=== PATIENT | female | born 1940 | race Caucasian/White ===

== ENCOUNTER 2017-09-19 20:29 | Inpatient (IN) ==
[2017-09-19] MEDS ORDERED: SODIUM CHLORIDE 0.9% 1,000 ML IV STA (21:32)
[2017-09-19] MEDS ORDERED: MORPHINE 2 MG/1 ML SYRINGE IV STA (21:32)
[2017-09-19] MEDS ORDERED: ONDANSETRON 4 MG/2 ML VIAL IV STA ×2 (21:32→22:28)
[2017-09-19] MEDS ORDERED: ONDANSETRON 4 MG/2 ML VIAL ONE ×2 (21:36→22:49)
[2017-09-19] MEDS ORDERED: MORPHINE 2 MG/1 ML SYRINGE ONE (21:36)
[2017-09-19] MEDS ORDERED: HYDROmorphone 2 MG/1 ML VIAL IV STA (22:28)
[2017-09-19] MEDS ORDERED: HYDROmorphone 2 MG/1 ML VIAL ONE (22:50)
[2017-09-19 22:55] LABS: Basophils % 0.2 % (0.0-0.8); Eosinophils % 0.2 % (0.00-10.9); Hematocrit 39.5 VOL% (35.7-47.0); Immature Granulocytes % 0.3 %; Immature Granulocytes Absolute 0.02 #; Lymphocytes % 17.7 % (21.3-54.2); Mean Corpuscular HGB Conc 32.9 GM/DL (32-36); Mean Corpuscular Hemoglobin 29 PG (27-34); Mean Corpuscular Volume 89.2 FL (87-102); Mean Platelet Volume 11.1 FL (9.6-12.0); Monocytes # 0.6 10*3/uL (0.11-0.8); Monocytes % 9.5 % (1.7-12.7); Neutrophils # 4.2 10*3/uL (1.4-7.4); Neutrophils % 72.1 % (38.7-73.9); Platelet Count 141 T/CUMM (130-400); Red Blood Count 4.43 MC/CUMM (3.8-5.5); Red Cell Distribution Width 12.1 % (9.3-17.3); White Blood Count 5.8 T/CUMM (4-12)
[2017-09-19] MEDS ORDERED: hydrALAZINE 20 MG/1 ML VIAL IV PRN (23:27)
[2017-09-19] MEDS ORDERED: HYDROmorphone 2 MG/1 ML VIAL IV PRN (23:28)
[2017-09-19 23:30] LABS: Lactic Acid 1.2 MMOL/L (0.4-2.0)
[2017-09-19 23:33] LABS: Alanine Aminotransferase 19 U/L (13-56); Albumin 3.8 G/DL (3.4-5.0); Alkaline Phosphatase 106 U/L (45-117); Aspartate Amino Transferase 21 U/L (0-37); Blood Urea Nitrogen 12 MG/DL (7-18); Calcium 8.7 MG/DL (8.5-10.1); Glucose 126 MG/DL (74-106); Osmolality,Calculated 284.1 MOS/KG (273-304); Potassium 3.7 MMOL/L (3.5-5.1); Sodium 142 MMOL/L (136-145); Total Protein 6.3 G/DL (6.4-8.3); Troponin I Only < 0.015 NG/ML (0.00-0.045)
[2017-09-20] MEDS ORDERED: LABETALOL 20 MG/4 ML SYRINGE IV PRN (00:20)
[2017-09-20] MEDS ORDERED: DEXTROSE 50% 25 GM/50 ML VIAL IV PRN (00:26)
[2017-09-20] MEDS ORDERED: GLUCAGON 1 MG VIAL IM PRN (00:26)
[2017-09-20] MEDS: ONDANSETRON 4 MG/2 ML VIAL IV PRN ×4 (02:10→21:29)
[2017-09-20] MEDS: SODIUM CHLORIDE 0.9% 1,000 ML IV SCH ×2 (02:18→23:26)
[2017-09-20] MEDS: HYDROmorphone 2 MG/1 ML VIAL IV PRN ×3 (02:45→21:30)
[2017-09-20] MEDS: metroNIDAZOLE INJ 500 MG in PREMIX 1 EACH IV SCH ×3 (04:50→21:29)
[2017-09-20] MEDS: CIPROFLOXACIN INJ 400 MG in PREMIX 1 EACH IV SCH ×2 (05:52→17:05)
[2017-09-20] MEDS: INSULIN REGULAR 100 UNIT/ML SUBCUT SCH ×3 (06:08→18:37)
[2017-09-20 06:16] LABS: Basophils % 0.1 % (0.0-0.8); Eosinophils % 0.1 % (0.00-10.9); Hematocrit 39.1 VOL% (35.7-47.0); Hemoglobin 13.6 GM/DL (12.0-16.0); Immature Granulocytes % 0.3 %; Immature Granulocytes Absolute 0.02 #; Lymphocytes % 14.4 % (21.3-54.2); Mean Corpuscular HGB Conc 34.8 GM/DL (32-36); Mean Corpuscular Hemoglobin 31 PG (27-34); Mean Corpuscular Volume 88.7 FL (87-102); Mean Platelet Volume 11.3 FL (9.6-12.0); Monocytes # 0.6 10*3/uL (0.11-0.8); Monocytes % 8.8 % (1.7-12.7); Neutrophils # 5.1 10*3/uL (1.4-7.4); Neutrophils % 76.3 % (38.7-73.9); Platelet Count 171 T/CUMM (130-400); Red Blood Count 4.41 MC/CUMM (3.8-5.5); Red Cell Distribution Width 12.2 % (9.3-17.3); White Blood Count 6.7 T/CUMM (4-12)
[2017-09-20] MEDS: KETOROLAC 15 MG/1 ML VIAL IV PRN (06:24)
[2017-09-20 06:57] LABS: Calcium 8.8 MG/DL (8.5-10.1); Magnesium 2.8 MG/DL (1.8-2.4); Potassium 3.9 MMOL/L (3.5-5.1); Thyroid Stimulating Hormone 3.41 uIU/ml (0.358-3.74)
[2017-09-20 07:21] LABS: Apearance,Urine CLEAR (Clear); Bilirubin,Urine Negative (Negative); Blood, Urine Moderate mg/dL (Negative); Glucose,Urine (UA) 50 mg/dL (Negative); Ketones,Urine 20 mg/dL (Negative); Mucus,Urine Occasional /LPF (Occasional); Nitrite,Urine Negative (Negative); Protein,Urine 100 MG/DL; RBC,Urine 14 /HPF (0-4); Squamous Epithelial Cell,Urine Occasional /HPF (0-10); Urine Color Yellow (Yellow); Urine Urobilinogen < 2.0 EU/DL (0.2-1.0); WBC,Urine 1 /HPF (0-6)
[2017-09-20] MEDS: PANTOPRAZOLE 40 MG VIAL IV SCH (08:22)
[2017-09-20] MEDS ORDERED: BISACODYL 10 MG SUPP RECTAL ONE (11:00)
[2017-09-21] MEDS: INSULIN REGULAR 100 UNIT/ML SUBCUT SCH ×4 (00:52→17:00)
[2017-09-21] MEDS: metroNIDAZOLE INJ 500 MG in PREMIX 1 EACH IV SCH ×3 (04:40→20:24)
[2017-09-21 05:19] LABS: Basophils % 0.4 % (0.0-0.8); Eosinophils # 0.1 10*3/uL (0.0-0.87); Eosinophils % 1.3 % (0.00-10.9); Hematocrit 34.7 VOL% (35.7-47.0); Hemoglobin 11.4 GM/DL (12.0-16.0); Immature Granulocytes % 0.4 %; Immature Granulocytes Absolute 0.02 #; Lymphocytes % 22.7 % (21.3-54.2); Mean Corpuscular HGB Conc 32.9 GM/DL (32-36); Mean Corpuscular Hemoglobin 29 PG (27-34); Mean Corpuscular Volume 88.7 FL (87-102); Monocytes # 0.4 10*3/uL (0.11-0.8); Monocytes % 9.6 % (1.7-12.7); Neutrophils % 65.6 % (38.7-73.9); Platelet Count 124 T/CUMM (130-400); Red Blood Count 3.91 MC/CUMM (3.8-5.5); Red Cell Distribution Width 12.2 % (9.3-17.3); White Blood Count 4.6 T/CUMM (4-12)
[2017-09-21 05:45] LABS: Calcium 8.4 MG/DL (8.5-10.1); Magnesium 2.4 MG/DL (1.8-2.4); Osmolality,Calculated 286.8 MOS/KG (273-304); Potassium 3.9 MMOL/L (3.5-5.1)
[2017-09-21] MEDS: CIPROFLOXACIN INJ 400 MG in PREMIX 1 EACH IV SCH ×2 (05:45→17:07)
[2017-09-21 05:52] LABS: Albumin 3.1 G/DL (3.4-5.0); Bilirubin,Total 1.1 MG/DL (0.2-1.0); Calcium 8.5 MG/DL (8.5-10.1); Potassium 3.9 MMOL/L (3.5-5.1); Total Protein 5.2 G/DL (6.4-8.3)
[2017-09-21] MEDS: SODIUM CHLORIDE 0.9% 1,000 ML IV SCH (08:25)
[2017-09-21] MEDS: PANTOPRAZOLE 40 MG VIAL IV SCH (08:26)
[2017-09-21] MEDS: ASPIRIN CHEW 81 MG TABLET PO SCH (08:26)
[2017-09-21] MEDS: KETOROLAC 15 MG/1 ML VIAL IV PRN ×2 (09:29→20:23)
[2017-09-21] MEDS: DEXTROSE 5% NACL 0.45% 1,000 ML IV SCH (13:00)
[2017-09-21] MEDS: HYDROmorphone 2 MG/1 ML VIAL IV PRN (13:07)
[2017-09-21] MEDS: ONDANSETRON 4 MG/2 ML VIAL IV PRN (20:26)
[2017-09-22] MEDS: INSULIN REGULAR 100 UNIT/ML SUBCUT SCH ×4 (01:13→18:44)
[2017-09-22] MEDS: DEXTROSE 5% NACL 0.45% 1,000 ML IV SCH ×2 (01:17→22:27)
[2017-09-22] MEDS: ONDANSETRON 4 MG/2 ML VIAL IV PRN ×2 (01:31→21:42)
[2017-09-22] MEDS: KETOROLAC 15 MG/1 ML VIAL IV PRN ×2 (02:34→21:47)
[2017-09-22] MEDS: CIPROFLOXACIN INJ 400 MG in PREMIX 1 EACH IV SCH ×2 (05:50→18:44)
[2017-09-22 06:14] LABS: Basophils % 0.3 % (0.0-0.8); Eosinophils # 0.1 10*3/uL (0.0-0.87); Hematocrit 31.6 VOL% (35.7-47.0); Hemoglobin 10.8 GM/DL (12.0-16.0); Immature Granulocytes % 0.3 %; Immature Granulocytes Absolute 0.01 #; Lymphocytes # 0.8 10*3/uL (1.4-4.0); Lymphocytes % 26.8 % (21.3-54.2); Mean Corpuscular HGB Conc 34.2 GM/DL (32-36); Mean Corpuscular Hemoglobin 30 PG (27-34); Mean Corpuscular Volume 86.3 FL (87-102); Mean Platelet Volume 10.8 FL (9.6-12.0); Monocytes # 0.4 10*3/uL (0.11-0.8); Monocytes % 12.8 % (1.7-12.7); Neutrophils # 1.7 10*3/uL (1.4-7.4); Neutrophils % 56.8 % (38.7-73.9); Platelet Count 123 T/CUMM (130-400); Red Blood Count 3.66 MC/CUMM (3.8-5.5); Red Cell Distribution Width 11.9 % (9.3-17.3)
[2017-09-22 06:41] LABS: Calcium 8.3 MG/DL (8.5-10.1); Magnesium 2.3 MG/DL (1.8-2.4); Potassium 3.5 MMOL/L (3.5-5.1)
[2017-09-22] MEDS: ASPIRIN CHEW 81 MG TABLET PO SCH (08:20)
[2017-09-22] MEDS: metroNIDAZOLE INJ 500 MG in PREMIX 1 EACH IV SCH ×3 (08:20→23:44)
[2017-09-22] MEDS: PANTOPRAZOLE 40 MG VIAL IV SCH (08:21)
[2017-09-22] MEDS ORDERED: MORPHINE 2 MG/1 ML SYRINGE IV PRN (12:45)
[2017-09-23] MEDS: INSULIN REGULAR 100 UNIT/ML SUBCUT SCH ×4 (01:40→18:07)
[2017-09-23] MEDS: DEXTROSE 5% NACL 0.45% 1,000 ML IV SCH ×2 (04:04→10:34)
[2017-09-23 06:20] LABS: Basophils % 0.3 % (0.0-0.8); Eosinophils # 0.1 10*3/uL (0.0-0.87); Eosinophils % 3.1 % (0.00-10.9); Hematocrit 32.2 VOL% (35.7-47.0); Immature Granulocytes % 0.3 %; Immature Granulocytes Absolute 0.01 #; Mean Corpuscular HGB Conc 34.2 GM/DL (32-36); Mean Corpuscular Hemoglobin 30 PG (27-34); Mean Corpuscular Volume 86.3 FL (87-102); Mean Platelet Volume 10.8 FL (9.6-12.0); Monocytes # 0.5 10*3/uL (0.11-0.8); Monocytes % 14.1 % (1.7-12.7); Neutrophils % 55.2 % (38.7-73.9); Platelet Count 142 T/CUMM (130-400); Red Blood Count 3.73 MC/CUMM (3.8-5.5); Red Cell Distribution Width 11.9 % (9.3-17.3); White Blood Count 3.6 T/CUMM (4-12)
[2017-09-23] MEDS: CIPROFLOXACIN INJ 400 MG in PREMIX 1 EACH IV SCH ×2 (06:33→18:13)
[2017-09-23 06:54] LABS: Calcium 8.3 MG/DL (8.5-10.1); Magnesium 2.2 MG/DL (1.8-2.4); Osmolality,Calculated 285.8 MOS/KG (273-304)
[2017-09-23] MEDS: metroNIDAZOLE INJ 500 MG in PREMIX 1 EACH IV SCH ×2 (10:36→16:56)
[2017-09-23] MEDS: CARVEDILOL 12.5 MG TABLET PO SCH ×2 (10:40→21:42)
[2017-09-23] MEDS: ASPIRIN EC 81 MG TABLET PO SCH (10:40)
[2017-09-23] MEDS: ISOSORBIDE MONONITRATE 60 MG TABLET PO SCH (10:40)
[2017-09-23] MEDS: CLOPIDOGREL 75 MG TABLET PO SCH (10:40)
[2017-09-23] MEDS: PANTOPRAZOLE 40 MG VIAL IV SCH (10:41)
[2017-09-23] MEDS: fentaNYL 50 MCG/HR PATCH TRANSDERM SCH (10:41)
[2017-09-23] MEDS: MORPHINE 2 MG/1 ML SYRINGE IV SCH ×2 (14:36→21:41)
[2017-09-24] MEDS: INSULIN REGULAR 100 UNIT/ML SUBCUT SCH ×4 (00:15→17:22)
[2017-09-24] MEDS: metroNIDAZOLE INJ 500 MG in PREMIX 1 EACH IV SCH ×4 (00:15→19:57)
[2017-09-24 06:07] LABS: Basophils % 0.3 % (0.0-0.8); Eosinophils # 0.2 10*3/uL (0.0-0.87); Eosinophils % 4.9 % (0.00-10.9); Hematocrit 30.1 VOL% (35.7-47.0); Hemoglobin 10.3 GM/DL (12.0-16.0); Lymphocytes # 1.3 10*3/uL (1.4-4.0); Lymphocytes % 35.8 % (21.3-54.2); Mean Corpuscular HGB Conc 34.2 GM/DL (32-36); Mean Corpuscular Hemoglobin 30 PG (27-34); Mean Platelet Volume 10.7 FL (9.6-12.0); Monocytes # 0.5 10*3/uL (0.11-0.8); Monocytes % 15.2 % (1.7-12.7); Neutrophils # 1.5 10*3/uL (1.4-7.4); Neutrophils % 43.8 % (38.7-73.9); Platelet Count 132 T/CUMM (130-400); Red Blood Count 3.46 MC/CUMM (3.8-5.5); Red Cell Distribution Width 12.2 % (9.3-17.3); White Blood Count 3.5 T/CUMM (4-12)
[2017-09-24] MEDS: CIPROFLOXACIN INJ 400 MG in PREMIX 1 EACH IV SCH ×3 (06:42→23:04)
[2017-09-24] MEDS: MORPHINE 2 MG/1 ML SYRINGE IV SCH (06:43)
[2017-09-24 06:56] LABS: Calcium 8.1 MG/DL (8.5-10.1); Magnesium 2.2 MG/DL (1.8-2.4); Osmolality,Calculated 284.8 MOS/KG (273-304); Potassium 3.1 MMOL/L (3.5-5.1)
[2017-09-24] MEDS ORDERED: CIPROFLOXACIN 250 MG TABLET PO SCH (09:00)
[2017-09-24] MEDS: ISOSORBIDE MONONITRATE 60 MG TABLET PO SCH (10:18)
[2017-09-24] MEDS: ASPIRIN EC 81 MG TABLET PO SCH (10:19)
[2017-09-24] MEDS: CLOPIDOGREL 75 MG TABLET PO SCH (10:19)
[2017-09-24] MEDS: CARVEDILOL 12.5 MG TABLET PO SCH ×2 (10:19→20:52)
[2017-09-24] MEDS: PANTOPRAZOLE 40 MG TABLET PO SCH (13:11)
[2017-09-24] MEDS: POTASSIUM CHLORIDE 20 MEQ TABLET PO SCH ×4 (13:11→20:53)
[2017-09-24] MEDS ORDERED: metroNIDAZOLE 250 MG TABLET PO SCH (14:00)
[2017-09-25] MEDS: INSULIN REGULAR 100 UNIT/ML SUBCUT SCH ×4 (01:06→17:31)
[2017-09-25] MEDS: metroNIDAZOLE INJ 500 MG in PREMIX 1 EACH IV SCH ×3 (02:57→22:27)
[2017-09-25] MEDS: ONDANSETRON 4 MG/2 ML VIAL IV PRN (06:11)
[2017-09-25 06:16] LABS: Basophils % 0.5 % (0.0-0.8); Eosinophils # 0.2 10*3/uL (0.0-0.87); Eosinophils % 6.1 % (0.00-10.9); Hematocrit 36.3 VOL% (35.7-47.0); Hemoglobin 12.1 GM/DL (12.0-16.0); Immature Granulocytes % 0.3 %; Immature Granulocytes Absolute 0.01 #; Lymphocytes # 1.5 10*3/uL (1.4-4.0); Lymphocytes % 39.3 % (21.3-54.2); Mean Corpuscular HGB Conc 33.3 GM/DL (32-36); Mean Corpuscular Hemoglobin 29 PG (27-34); Mean Corpuscular Volume 88.1 FL (87-102); Mean Platelet Volume 10.7 FL (9.6-12.0); Monocytes # 0.5 10*3/uL (0.11-0.8); Neutrophils # 1.5 10*3/uL (1.4-7.4); Neutrophils % 39.8 % (38.7-73.9); Platelet Count 191 T/CUMM (130-400); Red Blood Count 4.12 MC/CUMM (3.8-5.5); Red Cell Distribution Width 12.4 % (9.3-17.3); White Blood Count 3.8 T/CUMM (4-12)
[2017-09-25 06:31] LABS: Calcium 8.9 MG/DL (8.5-10.1); Magnesium 2.2 MG/DL (1.8-2.4); Osmolality,Calculated 281.1 MOS/KG (273-304); Potassium 4.5 MMOL/L (3.5-5.1)
[2017-09-25] MEDS: ISOSORBIDE MONONITRATE 60 MG TABLET PO SCH (09:00)
[2017-09-25] MEDS: PANTOPRAZOLE 40 MG TABLET PO SCH (09:00)
[2017-09-25] MEDS: CARVEDILOL 12.5 MG TABLET PO SCH ×2 (09:00→20:24)
[2017-09-25] MEDS: CLOPIDOGREL 75 MG TABLET PO SCH (09:00)
[2017-09-25] MEDS: ASPIRIN EC 81 MG TABLET PO SCH (09:01)
[2017-09-25] MEDS ORDERED: DEXT 5% NACL 0.45% KCL 20 MEQ 20 MEQ/1,000 ML BAG IV SCH (09:30)
[2017-09-25] MEDS: CIPROFLOXACIN INJ 400 MG in PREMIX 1 EACH IV SCH ×2 (12:25→23:32)
[2017-09-26] MEDS: INSULIN REGULAR 100 UNIT/ML SUBCUT SCH ×5 (00:09→23:38)
[2017-09-26] MEDS: ONDANSETRON 4 MG/2 ML VIAL IV PRN ×2 (04:52→20:35)
[2017-09-26] MEDS: metroNIDAZOLE INJ 500 MG in PREMIX 1 EACH IV SCH (06:17)
[2017-09-26 06:58] LABS: Basophils % 0.3 % (0.0-0.8); Eosinophils # 0.1 10*3/uL (0.0-0.87); Eosinophils % 3.9 % (0.00-10.9); Hematocrit 34.6 VOL% (35.7-47.0); Hemoglobin 11.3 GM/DL (12.0-16.0); Immature Granulocytes % 0.3 %; Immature Granulocytes Absolute 0.01 #; Lymphocytes # 0.9 10*3/uL (1.4-4.0); Lymphocytes % 28.8 % (21.3-54.2); Mean Corpuscular HGB Conc 32.7 GM/DL (32-36); Mean Corpuscular Hemoglobin 30 PG (27-34); Mean Corpuscular Volume 90.3 FL (87-102); Mean Platelet Volume 10.7 FL (9.6-12.0); Monocytes # 0.5 10*3/uL (0.11-0.8); Monocytes % 14.7 % (1.7-12.7); Neutrophils # 1.6 10*3/uL (1.4-7.4); Platelet Count 149 T/CUMM (130-400); Red Blood Count 3.83 MC/CUMM (3.8-5.5); Red Cell Distribution Width 12.4 % (9.3-17.3); White Blood Count 3.1 T/CUMM (4-12)
[2017-09-26] MEDS ORDERED: ERTAPENEM 1,000 MG in SODIUM CHLORIDE 0.9% 100 ML IV ONE (07:18)
[2017-09-26 07:26] LABS: Calcium 8.7 MG/DL (8.5-10.1); Magnesium 2.1 MG/DL (1.8-2.4); Osmolality,Calculated 282.1 MOS/KG (273-304); Potassium 5.5 MMOL/L (3.5-5.1)
[2017-09-26] MEDS ORDERED: ALVIMOPAN 12 MG CAPSULE PO ONE (07:34)
[2017-09-26] MEDS: SODIUM CHLORIDE 0.9% 1,000 ML IV SCH ×2 (08:15→22:25)
[2017-09-26] MEDS: fentaNYL 50 MCG/HR PATCH TRANSDERM SCH (09:00)
[2017-09-26] MEDS: ASPIRIN EC 81 MG TABLET PO SCH (09:00)
[2017-09-26] MEDS ORDERED: SCOPOLAMINE 1.5 MG PATCH TRANSDERM ONE ×2 (09:13→09:42)
[2017-09-26] MEDS: CARVEDILOL 12.5 MG TABLET PO SCH ×2 (09:25→20:35)
[2017-09-26] MEDS ORDERED: TISSUE ADHESIVE 1 EACH APPLICATOR TOP ONE (11:55)
[2017-09-26] MEDS ORDERED: PROPOFOL 200 MG/20 ML VIAL IV ONE (13:07)
[2017-09-26] MEDS ORDERED: SEVOFLURANE 1 UNIT/15 MINUTE INH ONE (13:07)
[2017-09-26] MEDS ORDERED: LABETALOL 20 MG/4 ML SYRINGE IV ONE (13:07)
[2017-09-26] MEDS ORDERED: NEOSTIGMINE 10 MG/10 ML VIAL ONE (13:08)
[2017-09-26] MEDS ORDERED: fentaNYL 100 MCG/2 ML VIAL ONE (13:08)
[2017-09-26] MEDS ORDERED: SUCCINYLCHOLINE 200 MG/10 ML VIAL ONE (13:08)
[2017-09-26] MEDS ORDERED: PHENYLEPHRINE 50 MG/5 ML VIAL ONE (13:08)
[2017-09-26] MEDS ORDERED: ROCURONIUM 100 MG/10 ML VIAL IV ONE (13:08)
[2017-09-26] MEDS ORDERED: HYDROmorphone 2 MG/1 ML VIAL ONE (13:21)
[2017-09-26] MEDS ORDERED: ONDANSETRON 4 MG/2 ML VIAL ONE (13:21)
[2017-09-26] MEDS: HYDROmorphone 2 MG/1 ML VIAL IV PRN ×5 (13:24→20:35)
[2017-09-26] MEDS ORDERED: ONDANSETRON 4 MG/2 ML VIAL IV PRN (13:24)
[2017-09-26] MEDS ORDERED: hydrALAZINE 20 MG/1 ML VIAL IV PRN (14:27)
[2017-09-26 15:24] LABS: Basophils % 0.2 % (0.0-0.8); Eosinophils % 0.1 % (0.00-10.9); Hematocrit 41.2 VOL% (35.7-47.0); Hemoglobin 13.3 GM/DL (12.0-16.0); Immature Granulocytes % 0.4 %; Immature Granulocytes Absolute 0.05 #; Lymphocytes # 0.8 10*3/uL (1.4-4.0); Lymphocytes % 5.9 % (21.3-54.2); Mean Corpuscular HGB Conc 32.3 GM/DL (32-36); Mean Corpuscular Hemoglobin 29 PG (27-34); Mean Corpuscular Volume 90.2 FL (87-102); Mean Platelet Volume 10.3 FL (9.6-12.0); Monocytes # 0.7 10*3/uL (0.11-0.8); Monocytes % 5.1 % (1.7-12.7); Neutrophils # 11.4 10*3/uL (1.4-7.4); Neutrophils % 88.3 % (38.7-73.9); Platelet Count 205 T/CUMM (130-400); Red Blood Count 4.57 MC/CUMM (3.8-5.5); Red Cell Distribution Width 12.2 % (9.3-17.3); White Blood Count 12.9 T/CUMM (4-12)
[2017-09-26] MEDS ORDERED: cloNIDine 0.3 MG/24 HR PATCH TRANSDERM SCH (15:30)
[2017-09-26] MEDS: KETOROLAC 15 MG/1 ML VIAL IV SCH ×2 (17:37→20:34)
[2017-09-26] MEDS: PANTOPRAZOLE 40 MG TABLET PO SCH (17:39)
[2017-09-26] MEDS: ISOSORBIDE MONONITRATE 60 MG TABLET PO SCH (17:39)
[2017-09-26] MEDS: ALVIMOPAN 12 MG CAPSULE PO SCH (20:35)
[2017-09-27] MEDS: KETOROLAC 15 MG/1 ML VIAL IV SCH ×4 (03:29→20:42)
[2017-09-27 04:45] LABS: Basophils % 0.1 % (0.0-0.8); Hematocrit 30.7 VOL% (35.7-47.0); Hemoglobin 9.8 GM/DL (12.0-16.0); Immature Granulocytes % 0.4 %; Immature Granulocytes Absolute 0.03 #; Lymphocytes # 0.9 10*3/uL (1.4-4.0); Lymphocytes % 12.3 % (21.3-54.2); Mean Corpuscular HGB Conc 31.9 GM/DL (32-36); Mean Corpuscular Hemoglobin 29 PG (27-34); Mean Corpuscular Volume 90.6 FL (87-102); Monocytes # 0.6 10*3/uL (0.11-0.8); Monocytes % 8.5 % (1.7-12.7); Neutrophils # 5.7 10*3/uL (1.4-7.4); Neutrophils % 78.7 % (38.7-73.9); Platelet Count 175 T/CUMM (130-400); Red Blood Count 3.39 MC/CUMM (3.8-5.5); Red Cell Distribution Width 12.5 % (9.3-17.3); White Blood Count 7.2 T/CUMM (4-12)
[2017-09-27 05:13] LABS: Calcium 7.7 MG/DL (8.5-10.1); Magnesium 1.9 MG/DL (1.8-2.4); Potassium 4.5 MMOL/L (3.5-5.1)
[2017-09-27] MEDS: SODIUM CHLORIDE 0.9% 1,000 ML IV SCH ×2 (05:47→20:46)
[2017-09-27] MEDS: INSULIN REGULAR 100 UNIT/ML SUBCUT SCH ×4 (06:05→23:27)
[2017-09-27] MEDS ORDERED: MAGNESIUM SULF RIDER 2 GM in PREMIX 1 EACH IV ONE (08:51)
[2017-09-27] MEDS: CARVEDILOL 12.5 MG TABLET PO SCH ×2 (08:55→20:42)
[2017-09-27] MEDS: ASPIRIN EC 81 MG TABLET PO SCH (08:55)
[2017-09-27] MEDS: PANTOPRAZOLE 40 MG TABLET PO SCH (08:56)
[2017-09-27] MEDS: ALVIMOPAN 12 MG CAPSULE PO SCH ×2 (08:56→20:42)
[2017-09-27] MEDS: LISINOPRIL/HCTZ 20-12.5 MG TABLET PO SCH (08:56)
[2017-09-27] MEDS: ISOSORBIDE MONONITRATE 60 MG TABLET PO SCH (08:56)
[2017-09-27 12:16] LABS: Hemoglobin 9.3 GM/DL (12.0-16.0)
[2017-09-28] MEDS: SODIUM CHLORIDE 0.9% 1,000 ML IV SCH ×3 (01:04→21:00)
[2017-09-28] MEDS: KETOROLAC 15 MG/1 ML VIAL IV SCH ×2 (03:00→09:50)
[2017-09-28 04:59] LABS: Basophils % 0.4 % (0.0-0.8); Eosinophils # 0.1 10*3/uL (0.0-0.87); Eosinophils % 2.3 % (0.00-10.9); Hematocrit 26.1 VOL% (35.7-47.0); Hemoglobin 8.4 GM/DL (12.0-16.0); Immature Granulocytes % 0.2 %; Immature Granulocytes Absolute 0.01 #; Lymphocytes % 18.6 % (21.3-54.2); Mean Corpuscular HGB Conc 32.2 GM/DL (32-36); Mean Corpuscular Hemoglobin 30 PG (27-34); Mean Corpuscular Volume 93.2 FL (87-102); Mean Platelet Volume 10.9 FL (9.6-12.0); Monocytes # 0.7 10*3/uL (0.11-0.8); Monocytes % 11.6 % (1.7-12.7); Neutrophils # 3.7 10*3/uL (1.4-7.4); Neutrophils % 66.9 % (38.7-73.9); Platelet Count 130 T/CUMM (130-400); White Blood Count 5.6 T/CUMM (4-12)
[2017-09-28 05:34] LABS: Calcium 7.9 MG/DL (8.5-10.1); Magnesium 2.7 MG/DL (1.8-2.4); Potassium 4.1 MMOL/L (3.5-5.1)
[2017-09-28] MEDS: INSULIN REGULAR 100 UNIT/ML SUBCUT SCH ×4 (06:03→23:17)
[2017-09-28] MEDS: ASPIRIN EC 81 MG TABLET PO SCH (09:49)
[2017-09-28] MEDS: CARVEDILOL 12.5 MG TABLET PO SCH ×2 (09:49→21:01)
[2017-09-28] MEDS: ALVIMOPAN 12 MG CAPSULE PO SCH ×2 (09:49→21:00)
[2017-09-28] MEDS: ISOSORBIDE MONONITRATE 60 MG TABLET PO SCH (09:49)
[2017-09-28] MEDS: PANTOPRAZOLE 40 MG TABLET PO SCH (09:50)
[2017-09-28] MEDS: LISINOPRIL/HCTZ 20-12.5 MG TABLET PO SCH (09:50)
[2017-09-28] MEDS: HYDROmorphone 2 MG/1 ML VIAL IV PRN ×3 (12:18→22:58)
[2017-09-28 16:40] LABS: Hematocrit 25.8 VOL% (35.7-47.0); Hemoglobin 8.3 GM/DL (12.0-16.0)
[2017-09-29] MEDS: SODIUM CHLORIDE 0.9% 1,000 ML IV SCH ×3 (00:52→16:51)
[2017-09-29] MEDS: INSULIN REGULAR 100 UNIT/ML SUBCUT SCH ×3 (06:11→18:20)
[2017-09-29 06:16] LABS: Basophils % 0.4 % (0.0-0.8); Eosinophils # 0.2 10*3/uL (0.0-0.87); Eosinophils % 4.1 % (0.00-10.9); Hematocrit 28.6 VOL% (35.7-47.0); Hemoglobin 9.1 GM/DL (12.0-16.0); Immature Granulocytes % 0.2 %; Immature Granulocytes Absolute 0.01 #; Lymphocytes # 1.1 10*3/uL (1.4-4.0); Lymphocytes % 22.8 % (21.3-54.2); Mean Corpuscular HGB Conc 31.8 GM/DL (32-36); Mean Corpuscular Hemoglobin 30 PG (27-34); Mean Corpuscular Volume 92.9 FL (87-102); Mean Platelet Volume 11.2 FL (9.6-12.0); Monocytes # 0.4 10*3/uL (0.11-0.8); Monocytes % 8.9 % (1.7-12.7); Neutrophils # 2.9 10*3/uL (1.4-7.4); Neutrophils % 63.6 % (38.7-73.9); Platelet Count 152 T/CUMM (130-400); Red Blood Count 3.08 MC/CUMM (3.8-5.5); Red Cell Distribution Width 12.5 % (9.3-17.3); White Blood Count 4.6 T/CUMM (4-12)
[2017-09-29 06:47] LABS: Calcium 8.4 MG/DL (8.5-10.1); Magnesium 2.1 MG/DL (1.8-2.4); Osmolality,Calculated 287.7 MOS/KG (273-304); Potassium 3.7 MMOL/L (3.5-5.1)
[2017-09-29] MEDS: fentaNYL 50 MCG/HR PATCH TRANSDERM SCH (08:43)
[2017-09-29] MEDS: PANTOPRAZOLE 40 MG TABLET PO SCH (08:45)
[2017-09-29] MEDS: LISINOPRIL/HCTZ 20-12.5 MG TABLET PO SCH (08:45)
[2017-09-29] MEDS: ALVIMOPAN 12 MG CAPSULE PO SCH ×2 (08:45→21:44)
[2017-09-29] MEDS: ASPIRIN EC 81 MG TABLET PO SCH (08:45)
[2017-09-29] MEDS: CARVEDILOL 12.5 MG TABLET PO SCH ×2 (08:45→21:44)
[2017-09-29] MEDS: ISOSORBIDE MONONITRATE 60 MG TABLET PO SCH (08:45)
[2017-09-29] MEDS: KETOROLAC 15 MG/1 ML VIAL IV SCH ×3 (10:46→21:49)
[2017-09-29 12:23] LABS: Hematocrit 29.2 VOL% (35.7-47.0); Hemoglobin 9.6 GM/DL (12.0-16.0)
[2017-09-30] MEDS: INSULIN REGULAR 100 UNIT/ML SUBCUT SCH ×3 (00:09→15:31)
[2017-09-30 04:20] LABS: Basophils % 0.5 % (0.0-0.8); Eosinophils # 0.2 10*3/uL (0.0-0.87); Eosinophils % 5.9 % (0.00-10.9); Hematocrit 26.7 VOL% (35.7-47.0); Hemoglobin 9.1 GM/DL (12.0-16.0); Immature Granulocytes % 0.3 %; Immature Granulocytes Absolute 0.01 #; Lymphocytes # 1.1 10*3/uL (1.4-4.0); Lymphocytes % 27.8 % (21.3-54.2); Mean Corpuscular HGB Conc 34.1 GM/DL (32-36); Mean Corpuscular Hemoglobin 30 PG (27-34); Mean Corpuscular Volume 88.1 FL (87-102); Mean Platelet Volume 10.9 FL (9.6-12.0); Monocytes # 0.4 10*3/uL (0.11-0.8); Monocytes % 10.3 % (1.7-12.7); Neutrophils # 2.1 10*3/uL (1.4-7.4); Neutrophils % 55.2 % (38.7-73.9); Platelet Count 151 T/CUMM (130-400); Red Blood Count 3.03 MC/CUMM (3.8-5.5); Red Cell Distribution Width 12.2 % (9.3-17.3); White Blood Count 3.9 T/CUMM (4-12)
[2017-09-30] MEDS: KETOROLAC 15 MG/1 ML VIAL IV SCH ×2 (05:10→09:37)
[2017-09-30] MEDS: SODIUM CHLORIDE 0.9% 1,000 ML IV SCH (05:14)
[2017-09-30 05:40] LABS: Calcium 7.9 MG/DL (8.5-10.1); Osmolality,Calculated 285.7 MOS/KG (273-304); Potassium 3.3 MMOL/L (3.5-5.1)
[2017-09-30] MEDS ORDERED: POTASSIUM CHLORIDE 20 MEQ TABLET PO PRN (07:32)
[2017-09-30] MEDS: PANTOPRAZOLE 40 MG TABLET PO SCH (09:37)
[2017-09-30] MEDS: CARVEDILOL 12.5 MG TABLET PO SCH (09:37)
[2017-09-30] MEDS: ISOSORBIDE MONONITRATE 60 MG TABLET PO SCH (09:37)
[2017-09-30] MEDS: ASPIRIN EC 81 MG TABLET PO SCH (09:37)
[2017-09-30] MEDS: LISINOPRIL/HCTZ 20-12.5 MG TABLET PO SCH (09:37)
[2017-09-30 11:18] VITALS: BP 126/64
== END 2017-09-30 13:35 | disposition home health service (06) | DRG 330 ==
LOC: EDBD → EDUNIT# → N.ED 20:29 → SUATTDRO 23:10 → N.EDINP 23:10 → N.3E 09-20 00:15
PROVIDERS: ADMIT Internal Medicine; ATTEND Internal Medicine

== ENCOUNTER 2017-10-09 14:33 | Inpatient (IN) ==
[2017-10-09] MEDS ORDERED: SODIUM CHLORIDE 0.9% 500 ML IV STA (16:21)
[2017-10-09] MEDS ORDERED: ONDANSETRON 4 MG/2 ML VIAL IV STA (16:21)
[2017-10-09] MEDS ORDERED: PANTOPRAZOLE 40 MG VIAL IV STA (16:21)
[2017-10-09] MEDS ORDERED: CLINDAMYCIN INJ 900 MG in PREMIX 1 EACH IV STA (16:21)
[2017-10-09] MEDS ORDERED: CLINDAMYCIN IV ONE (16:32)
[2017-10-09] MEDS ORDERED: ONDANSETRON 4 MG/2 ML VIAL ONE (16:32)
[2017-10-09] MEDS ORDERED: PANTOPRAZOLE 40 MG VIAL IV ONE (16:32)
[2017-10-09 16:48] LABS: Basophils % 0.3 % (0.0-0.8); Eosinophils # 0.3 10*3/uL (0.0-0.87); Eosinophils % 4.9 % (0.00-10.9); Hematocrit 38.1 VOL% (35.7-47.0); Hemoglobin 12.4 GM/DL (12.0-16.0); Immature Granulocytes % 0.3 %; Immature Granulocytes Absolute 0.02 #; Lymphocytes # 1.3 10*3/uL (1.4-4.0); Lymphocytes % 21.9 % (21.3-54.2); Mean Corpuscular HGB Conc 32.5 GM/DL (32-36); Mean Corpuscular Hemoglobin 29 PG (27-34); Mean Corpuscular Volume 89.9 FL (87-102); Mean Platelet Volume 10.2 FL (9.6-12.0); Monocytes # 0.5 10*3/uL (0.11-0.8); Monocytes % 8.5 % (1.7-12.7); Neutrophils # 3.7 10*3/uL (1.4-7.4); Neutrophils % 64.1 % (38.7-73.9); Platelet Count 298 T/CUMM (130-400); Red Blood Count 4.24 MC/CUMM (3.8-5.5); Red Cell Distribution Width 12.4 % (9.3-17.3); White Blood Count 5.8 T/CUMM (4-12)
[2017-10-09 17:04] LABS: Lactic Acid 0.9 MMOL/L (0.4-2.0)
[2017-10-09 17:08] LABS: Alanine Aminotransferase 17 U/L (13-56); Albumin 3.7 G/DL (3.4-5.0); Alkaline Phosphatase 128 U/L (45-117); Amylase 64 U/L (25-115); Aspartate Amino Transferase 21 U/L (0-37); Blood Urea Nitrogen 8 MG/DL (7-18); Calcium 9.9 MG/DL (8.5-10.1); Glucose 125 MG/DL (74-106); Osmolality,Calculated 275.5 MOS/KG (273-304); Potassium 3.9 MMOL/L (3.5-5.1); Sodium 139 MMOL/L (136-145); Troponin I Only < 0.015 NG/ML (0.00-0.045)
[2017-10-09 17:54] LABS: Apearance,Urine CLEAR (Clear); Bilirubin,Urine Negative (Negative); Blood, Urine Moderate mg/dL (Negative); Glucose,Urine (UA) Negative (Negative); Ketones,Urine Negative (Negative); Nitrite,Urine Negative (Negative); Protein,Urine Negative; RBC,Urine 2 /HPF (0-4); Squamous Epithelial Cell,Urine Occasional /HPF (0-10); Urine Color Yellow (Yellow); Urine Specific Gravity 1.005 (1.001-1.035); Urine Urobilinogen < 2.0 EU/DL (0.2-1.0); WBC,Urine 8 /HPF (0-6)
[2017-10-09] MEDS ORDERED: LIDOCAINE 1%/EPI INJ 20 ML VIAL ONE (19:25)
[2017-10-09] MEDS ORDERED: GLUCAGON 1 MG VIAL IM PRN (20:29)
[2017-10-09] MEDS ORDERED: DEXTROSE 50% 25 GM/50 ML VIAL IV PRN (20:29)
[2017-10-09] MEDS ORDERED: ONDANSETRON 4 MG/2 ML VIAL IV PRN (20:29)
[2017-10-09] MEDS ORDERED: ATORVASTATIN 80 MG TABLET PO SCH (21:00)
[2017-10-09] MEDS: INSULIN REGULAR 100 UNIT/ML SUBCUT SCH (21:40)
[2017-10-09] MEDS: CARVEDILOL 12.5 MG TABLET PO SCH (21:41)
[2017-10-10] MEDS: CLINDAMYCIN INJ 900 MG in PREMIX 1 EACH IV SCH ×2 (00:23→09:48)
[2017-10-10 05:58] LABS: Troponin I Only 0.016 NG/ML (0.00-0.045)
[2017-10-10] MEDS ORDERED: NITROGLYCERIN SL 0.4 MG TABLET SL PRN (07:00)
[2017-10-10] MEDS ORDERED: metFORMIN 500 MG TABLET PO SCH ×2 (08:00→09:00)
[2017-10-10] MEDS ORDERED: fentaNYL 50 MCG/HR PATCH TRANSDERM SCH (09:00)
[2017-10-10] MEDS ORDERED: PANTOPRAZOLE 40 MG TABLET PO SCH (09:00)
[2017-10-10] MEDS ORDERED: CLOPIDOGREL 75 MG TABLET PO SCH (09:00)
[2017-10-10] MEDS ORDERED: LOSARTAN/HCTZ 50-12.5 MG TABLET PO SCH ×2 (09:00)
[2017-10-10] MEDS ORDERED: ASPIRIN EC 81 MG TABLET PO SCH (09:00)
[2017-10-10] MEDS ORDERED: ASPIRIN 325 MG TABLET PO SCH (09:00)
[2017-10-10] MEDS ORDERED: ISOSORBIDE MONONITRATE 60 MG TABLET PO SCH ×2 (09:00)
[2017-10-10] MEDS ORDERED: CARVEDILOL 12.5 MG TABLET PO SCH (09:00)
[2017-10-10] MEDS ORDERED: POTASSIUM CHLORIDE 10 MEQ TABLET PO SCH (09:00)
[2017-10-10] MEDS: INSULIN REGULAR 100 UNIT/ML SUBCUT SCH ×2 (09:05→11:36)
[2017-10-10] MEDS: CARVEDILOL 12.5 MG TABLET PO SCH (09:23)
[2017-10-10 11:50] VITALS: BP 88/50
[2017-10-10] MEDS ORDERED: ATORVASTATIN 80 MG TABLET PO SCH (21:00)
== END 2017-10-10 15:15 | disposition home health service (06) | DRG 921 ==
LOC: N.ED 14:33 → N.EDINP 19:08 → N.3E 19:48
PROVIDERS: ADMIT Surgery; ATTEND Surgery

== ENCOUNTER 2018-06-01 14:47 | Observation (INO) ==
[2018-06-01] MEDS ORDERED: ASPIRIN 325 MG TABLET PO STA (15:00)
[2018-06-01 15:45] LABS: INR 0.9; Partial Thromboplastin Time 24.2 SECS (0-40)
[2018-06-01 15:48] LABS: Albumin 3.6 G/DL (3.4-5.0); Bilirubin,Total 0.6 MG/DL (0.2-1.0); Calcium 8.6 MG/DL (8.5-10.1); Potassium 3.9 MMOL/L (3.5-5.1); Total Protein 6.5 G/DL (6.4-8.3)
[2018-06-01 16:00] LABS: Basophils % 0.3 % (0.0-0.8); Eosinophils # 0.1 10*3/uL (0.0-0.87); Hematocrit 37.9 VOL% (35.7-47.0); Hemoglobin 12.5 GM/DL (12.0-16.0); Immature Granulocytes % 0.3 %; Immature Granulocytes Absolute 0.01 #; Lymphocytes # 1.3 10*3/uL (1.4-4.0); Lymphocytes % 35.5 % (21.3-54.2); Mean Corpuscular Hemoglobin 29 PG (27-34); Mean Corpuscular Volume 88.1 FL (87-102); Mean Platelet Volume 10.6 FL (9.6-12.0); Monocytes # 0.4 10*3/uL (0.11-0.8); Monocytes % 11.7 % (1.7-12.7); Neutrophils # 1.8 10*3/uL (1.4-7.4); Neutrophils % 49.2 % (38.7-73.9); Platelet Count 147 T/CUMM (130-400); Red Cell Distribution Width 11.7 % (9.3-17.3); White Blood Count 3.7 T/CUMM (4-12)
[2018-06-01] MEDS ORDERED: ENOXAPARIN 40 MG/0.4 ML SYRINGE SUBCUT STA (17:25)
[2018-06-01] MEDS ORDERED: NITROGLYCERIN 2% OINT 1 INCH/GM PACK TOP STA (17:25)
[2018-06-01] MEDS ORDERED: DEXTROSE 50% 25 GM/50 ML VIAL IV PRN (18:26)
[2018-06-01] MEDS ORDERED: GLUCAGON 1 MG VIAL IM PRN (18:26)
[2018-06-01] MEDS ORDERED: MAGNESIUM SULF RIDER 4 GM in PREMIX 1 EACH IV PRN (18:26)
[2018-06-01] MEDS ORDERED: MAGNESIUM SULF RIDER 2 GM in PREMIX 1 EACH IV PRN (18:26)
[2018-06-01] MEDS: INSULIN LISPRO 100 UNIT/ML SUBCUT SCH (21:10)
[2018-06-01] MEDS: SODIUM CHLORIDE 0.9% 1,000 ML IV SCH (22:25)
[2018-06-02 01:21] LABS: Risk Ratio 2.49; VLDL CHOLESTEROL 15.4 MG/DL
[2018-06-02] MEDS: NITROGLYCERIN 2% OINT 1 INCH/GM PACK TOP SCH ×4 (03:26→17:15)
[2018-06-02] MEDS ORDERED: NITROGLYCERIN 2% OINT 1 INCH/GM PACK TOP SCH (06:00)
[2018-06-02] MEDS: ENOXAPARIN 60 MG/0.6 ML SYRINGE SUBCUT SCH ×2 (06:04→17:14)
[2018-06-02] MEDS: INSULIN LISPRO 100 UNIT/ML SUBCUT SCH ×4 (07:12→21:50)
[2018-06-02] MEDS ORDERED: DIAZEPAM 5 MG TABLET PO ONE (09:29)
[2018-06-02] MEDS ORDERED: diphenhydrAMINE CAP 25 MG CAPSULE PO ONE (09:29)
[2018-06-02] MEDS ORDERED: POTASSIUM CHLORIDE RIDER 10 MEQ in PREMIX 1 EACH IV PRN (09:29)
[2018-06-02] MEDS ORDERED: MAGNESIUM SULF RIDER 2 GM in PREMIX 1 EACH IV PRN (09:29)
[2018-06-02] MEDS ORDERED: HEPARIN/NACL 0.9% 2 UNITS/ML 1,000 ML IV ONE (09:35)
[2018-06-02] MEDS ORDERED: LIDOCAINE 1% 20 ML VIAL ONE (09:35)
[2018-06-02] MEDS ORDERED: NITROGLYCERIN DRIP 50 MG/250 ML BOTTLE IV ONE (09:38)
[2018-06-02] MEDS ORDERED: VERAPAMIL 5 MG/2 ML VIAL ONE (09:38)
[2018-06-02] MEDS ORDERED: diphenhydrAMINE CAP 50 MG CAPSULE ONE (09:39)
[2018-06-02] MEDS ORDERED: HYDROmorphone 2 MG/1 ML VIAL ONE (09:43)
[2018-06-02] MEDS ORDERED: MIDAZOLAM 2 MG/2 ML VIAL ONE (09:43)
[2018-06-02] MEDS: CLOPIDOGREL 75 MG TABLET PO SCH (09:48)
[2018-06-02] MEDS: CARVEDILOL 12.5 MG TABLET PO SCH ×2 (09:48→21:50)
[2018-06-02] MEDS: LOSARTAN/HCTZ 50-12.5 MG TABLET PO SCH (09:48)
[2018-06-02] MEDS: ASPIRIN EC 81 MG TABLET PO SCH (09:48)
[2018-06-02] MEDS: ISOSORBIDE MONONITRATE 60 MG TABLET PO SCH (09:58)
[2018-06-02] MEDS: POTASSIUM CHLORIDE 10 MEQ TABLET PO SCH ×2 (09:58→21:49)
[2018-06-02] MEDS ORDERED: fentaNYL 50 MCG/HR PATCH TRANSDERM SCH (10:00)
[2018-06-02] MEDS: SODIUM CHLORIDE 0.9% 1,000 ML IV SCH (15:11)
[2018-06-02] MEDS ORDERED: ATORVASTATIN 80 MG TABLET PO SCH (21:00)
[2018-06-03] MEDS: NITROGLYCERIN 2% OINT 1 INCH/GM PACK TOP SCH ×2 (00:26→06:23)
[2018-06-03] MEDS: ENOXAPARIN 60 MG/0.6 ML SYRINGE SUBCUT SCH (06:04)
[2018-06-03 06:32] LABS: Basophils % 0.5 % (0.0-0.8); Eosinophils # 0.1 10*3/uL (0.0-0.87); Eosinophils % 1.6 % (0.00-10.9); Hematocrit 41.2 VOL% (35.7-47.0); Hemoglobin 13.3 GM/DL (12.0-16.0); Immature Granulocytes % 0.2 %; Immature Granulocytes Absolute 0.01 #; Lymphocytes # 1.5 10*3/uL (1.4-4.0); Lymphocytes % 36.1 % (21.3-54.2); Mean Corpuscular HGB Conc 32.3 GM/DL (32-36); Mean Corpuscular Hemoglobin 29 PG (27-34); Mean Corpuscular Volume 90.2 FL (87-102); Mean Platelet Volume 10.8 FL (9.6-12.0); Monocytes # 0.4 10*3/uL (0.11-0.8); Monocytes % 9.8 % (1.7-12.7); Neutrophils # 2.2 10*3/uL (1.4-7.4); Neutrophils % 51.8 % (38.7-73.9); Platelet Count 159 T/CUMM (130-400); Red Blood Count 4.57 MC/CUMM (3.8-5.5); White Blood Count 4.3 T/CUMM (4-12)
[2018-06-03 06:56] LABS: Calcium 9.1 MG/DL (8.5-10.1); Osmolality,Calculated 283.1 MOS/KG (273-304); Potassium 3.3 MMOL/L (3.5-5.1)
[2018-06-03 08:49] VITALS: BP 102/56
[2018-06-03] MEDS: CARVEDILOL 12.5 MG TABLET PO SCH (09:20)
[2018-06-03] MEDS: ASPIRIN EC 81 MG TABLET PO SCH (09:20)
[2018-06-03] MEDS: LOSARTAN/HCTZ 50-12.5 MG TABLET PO SCH (09:20)
[2018-06-03] MEDS: ISOSORBIDE MONONITRATE 60 MG TABLET PO SCH (09:21)
[2018-06-03] MEDS: POTASSIUM CHLORIDE 10 MEQ TABLET PO SCH (09:21)
[2018-06-03] MEDS: CLOPIDOGREL 75 MG TABLET PO SCH (09:21)
[2018-06-03] MEDS: INSULIN LISPRO 100 UNIT/ML SUBCUT SCH (09:26)
[2018-06-03] MEDS ORDERED: POTASSIUM CHLORIDE 20 MEQ TABLET PO ONE (09:32)
[2018-06-03] MEDS: SODIUM CHLORIDE 0.9% 1,000 ML IV SCH (10:56)
== END 2018-06-03 11:00 | disposition home or self-care (01) ==
LOC: N.ED 14:47 → N.EDINP 14:47 → N.TELEN 17:46
PROVIDERS: ADMIT Internal Medicine Cardiovascular Disease; ATTEND Internal Medicine Cardiovascular Disease
PROC: CLCCHCL (ICD-10-PCS; 2018-06-02 10:15)

== ENCOUNTER 2019-05-15 13:16 | Observation (INO) ==
[2019-05-15 14:46] LABS: Troponin I 0.716 NG/ML (0.00-0.045)
[2019-05-15 14:47] LABS: Osmolality,Calculated 279.7 MOS/KG (273-304)
[2019-05-15] MEDS ORDERED: POTASSIUM CHLORIDE 20 MEQ TABLET PO PRN (15:31)
[2019-05-15] MEDS ORDERED: DOCUSATE SODIUM 100 MG CAPSULE PO PRN (15:31)
[2019-05-15] MEDS ORDERED: MAGNESIUM SULF RIDER 2 GM in PREMIX 1 EACH IV PRN (15:31)
[2019-05-15] MEDS ORDERED: guaiFENesin/DM ER 600-30 MG TABLET PO PRN (15:31)
[2019-05-15] MEDS ORDERED: MAGNESIUM SULF RIDER 4 GM in PREMIX 1 EACH IV PRN (15:31)
[2019-05-15] MEDS ORDERED: ZALEPLON 5 MG CAPSULE PO PRN (15:31)
[2019-05-15] MEDS ORDERED: ACETAMINOPHEN 325 MG TABLET PO PRN (15:31)
[2019-05-15] MEDS ORDERED: NITROGLYCERIN SL 0.4 MG TABLET SL PRN (15:45)
[2019-05-15] MEDS ORDERED: MECLIZINE 25 MG TABLET PO PRN (15:45)
[2019-05-15] MEDS ORDERED: SODIUM CHLORIDE 0.9% 1,000 ML IV SCH (16:00)
[2019-05-15] MEDS ORDERED: fentaNYL 50 MCG/HR PATCH TRANSDERM SCH (19:00)
[2019-05-15] MEDS: RANOLAZINE 500 MG TABLET PO SCH (20:20)
[2019-05-15] MEDS: ATORVASTATIN 80 MG TABLET PO SCH (20:20)
[2019-05-15] MEDS: tiZANidine 4 MG TABLET PO SCH (20:20)
[2019-05-15] MEDS: carvediloL 12.5 MG TABLET PO SCH (20:27)
[2019-05-15] MEDS: ENOXAPARIN 40 MG/0.4 ML SYRINGE SUBCUT SCH (20:34)
[2019-05-15] MEDS: POTASSIUM CHLORIDE 10 MEQ TABLET PO SCH (20:36)
[2019-05-16] MEDS: tiZANidine 4 MG TABLET PO SCH ×3 (04:02→18:24)
[2019-05-16 04:26] LABS: Basophils % 0.3 % (0.0-0.8); Eosinophils # 0.1 10*3/uL (0.0-0.87); Eosinophils % 1.9 % (0.00-10.9); Hematocrit 31.8 VOL% (35.7-47.0); Hemoglobin 10.5 GM/DL (12.0-16.0); Immature Granulocytes % 0.3 %; Immature Granulocytes Absolute 0.02 #; Lymphocytes % 15.1 % (21.3-54.2); Mean Corpuscular Volume 88.8 FL (87-102); Mean Platelet Volume 11.2 FL (9.6-12.0); Monocytes % 10.9 % (1.7-12.7); Neutrophils % 71.5 % (38.7-73.9); Platelet Count 145 T/CUMM (130-400); Red Blood Count 3.58 MC/CUMM (3.8-5.5); Red Cell Distribution Width 13.3 % (9.3-17.3); White Blood Count 6.4 T/CUMM (4-12)
[2019-05-16 05:07] LABS: Bilirubin,Total 0.8 MG/DL (0.2-1.0); Calcium 8.9 MG/DL (8.5-10.1); Osmolality,Calculated 284.3 MOS/KG (273-304); Thyroid Stimulating Hormone 0.307 uIU/ml (0.358-3.74); Total Protein 5.6 G/DL (6.4-8.3)
[2019-05-16 08:41] LABS: Troponin I 0.371 NG/ML (0.00-0.045)
[2019-05-16] MEDS: ASPIRIN EC 81 MG TABLET PO SCH (08:47)
[2019-05-16] MEDS: CHOLECALCIFEROL 5,000 UNIT TABLET PO SCH (08:47)
[2019-05-16] MEDS: PANTOPRAZOLE 40 MG TABLET PO SCH (08:47)
[2019-05-16] MEDS: ISOSORBIDE MONONITRATE 60 MG TABLET PO SCH (08:47)
[2019-05-16] MEDS: POTASSIUM CHLORIDE 10 MEQ TABLET PO SCH ×2 (08:48→22:17)
[2019-05-16] MEDS: CLOPIDOGREL 75 MG TABLET PO SCH (08:48)
[2019-05-16] MEDS: carvediloL 12.5 MG TABLET PO SCH (08:48)
[2019-05-16] MEDS: LINACLOTIDE 145 MCG CAPSULE PO SCH (08:48)
[2019-05-16] MEDS: RANOLAZINE 500 MG TABLET PO SCH ×2 (08:48→22:17)
[2019-05-16 12:19] LABS: Apearance,Urine CLEAR (Clear); Bilirubin,Urine Negative (Negative); Blood, Urine Negative (Negative); Glucose,Urine (UA) >=500 mg/dL (Negative); Hyaline Casts,Urine 1 /LPF (0-3); Ketones,Urine Negative (Negative); Nitrite,Urine Negative (Negative); Protein,Urine Negative; RBC,Urine 2 /HPF (0-4); Squamous Epithelial Cell,Urine Occasional /HPF (0-10); Urine Color Yellow (Yellow); Urine Specific Gravity 1.012 (1.001-1.035); Urine Urobilinogen < 2.0 EU/DL (0.2-1.0); WBC,Urine 2 /HPF (0-6)
[2019-05-16] MEDS: carvediloL 25 MG TABLET PO SCH (17:23)
[2019-05-16] MEDS: ENOXAPARIN 40 MG/0.4 ML SYRINGE SUBCUT SCH (22:17)
[2019-05-16] MEDS: ATORVASTATIN 80 MG TABLET PO SCH (22:17)
[2019-05-17] MEDS: tiZANidine 4 MG TABLET PO SCH ×2 (03:35→12:50)
[2019-05-17 04:52] LABS: Basophils % 0.2 % (0.0-0.8); Eosinophils # 0.2 10*3/uL (0.0-0.87); Eosinophils % 4.6 % (0.00-10.9); Hemoglobin 9.5 GM/DL (12.0-16.0); Immature Granulocytes % 0.2 %; Immature Granulocytes Absolute 0.01 #; Mean Corpuscular HGB Conc 32.8 GM/DL (32-36); Mean Corpuscular Volume 89.8 FL (87-102); Mean Platelet Volume 10.8 FL (9.6-12.0); Monocytes % 11.3 % (1.7-12.7); Neutrophils % 58.7 % (38.7-73.9); Platelet Count 132 T/CUMM (130-400); Red Blood Count 3.23 MC/CUMM (3.8-5.5); Red Cell Distribution Width 13.6 % (9.3-17.3); White Blood Count 4.2 T/CUMM (4-12)
[2019-05-17 05:15] LABS: Calcium 8.8 MG/DL (8.5-10.1)
[2019-05-17] MEDS: ISOSORBIDE MONONITRATE 60 MG TABLET PO SCH (09:41)
[2019-05-17] MEDS: LINACLOTIDE 145 MCG CAPSULE PO SCH (09:41)
[2019-05-17] MEDS: RANOLAZINE 500 MG TABLET PO SCH ×2 (09:41→22:01)
[2019-05-17] MEDS: carvediloL 25 MG TABLET PO SCH ×2 (09:42→18:20)
[2019-05-17] MEDS: ASPIRIN EC 81 MG TABLET PO SCH (09:42)
[2019-05-17] MEDS: CLOPIDOGREL 75 MG TABLET PO SCH (09:42)
[2019-05-17] MEDS: PANTOPRAZOLE 40 MG TABLET PO SCH (09:42)
[2019-05-17] MEDS: POTASSIUM CHLORIDE 10 MEQ TABLET PO SCH ×2 (09:42→22:01)
[2019-05-17] MEDS: CHOLECALCIFEROL 5,000 UNIT TABLET PO SCH (09:42)
[2019-05-17 13:39] LABS: Free T4 (Free Thyroxine) 1.27 NG/DL (0.76-1.46)
[2019-05-17 14:13] LABS: Vitamin B12 374 PG/ML (211-911)
[2019-05-17] MEDS ORDERED: fentaNYL 25 MCG/HR PATCH TRANSDERM SCH (15:01)
[2019-05-17] MEDS ORDERED: GLUCAGON 1 MG VIAL IM PRN (15:41)
[2019-05-17] MEDS ORDERED: DEXTROSE 50% 25 GM/50 ML VIAL IV PRN (15:41)
[2019-05-17] MEDS: INSULIN REGULAR 100 UNIT/ML SUBCUT SCH ×2 (18:21→22:01)
[2019-05-17] MEDS: CYANOCOBALAMIN 1000 MCG/1 ML VIAL IM SCH (18:22)
[2019-05-17] MEDS: ATORVASTATIN 80 MG TABLET PO SCH (22:01)
[2019-05-18 05:36] LABS: Basophils % 0.3 % (0.0-0.8); Eosinophils # 0.2 10*3/uL (0.0-0.87); Eosinophils % 5.1 % (0.00-10.9); Hematocrit 31.7 VOL% (35.7-47.0); Hemoglobin 10.2 GM/DL (12.0-16.0); Immature Granulocytes % 0.3 %; Immature Granulocytes Absolute 0.01 #; Lymphocytes # 0.8 10*3/uL (1.4-4.0); Lymphocytes % 21.9 % (21.3-54.2); Mean Corpuscular HGB Conc 32.2 GM/DL (32-36); Mean Corpuscular Volume 89.8 FL (87-102); Mean Platelet Volume 10.6 FL (9.6-12.0); Monocytes % 12.8 % (1.7-12.7); Neutrophils % 59.6 % (38.7-73.9); Platelet Count 138 T/CUMM (130-400); Red Blood Count 3.53 MC/CUMM (3.8-5.5); Red Cell Distribution Width 13.7 % (9.3-17.3); White Blood Count 3.7 T/CUMM (4-12)
[2019-05-18] MEDS ORDERED: COENZYME Q10 100 MG CAPSULE PO SCH (09:00)
[2019-05-18] MEDS: POTASSIUM CHLORIDE 10 MEQ TABLET PO SCH (09:04)
[2019-05-18] MEDS: carvediloL 25 MG TABLET PO SCH (09:04)
[2019-05-18] MEDS: ASPIRIN EC 81 MG TABLET PO SCH (09:04)
[2019-05-18] MEDS: INSULIN REGULAR 100 UNIT/ML SUBCUT SCH ×2 (09:04→13:15)
[2019-05-18] MEDS: CLOPIDOGREL 75 MG TABLET PO SCH (09:04)
[2019-05-18] MEDS: PANTOPRAZOLE 40 MG TABLET PO SCH (09:04)
[2019-05-18] MEDS: ISOSORBIDE MONONITRATE 60 MG TABLET PO SCH (09:05)
[2019-05-18] MEDS: CYANOCOBALAMIN 1000 MCG/1 ML VIAL IM SCH (09:05)
[2019-05-18] MEDS: CHOLECALCIFEROL 5,000 UNIT TABLET PO SCH (09:05)
[2019-05-18] MEDS: RANOLAZINE 500 MG TABLET PO SCH (09:05)
[2019-05-18 12:15] VITALS: BP 101/62
== END 2019-05-18 14:27 | disposition home health service (06) ==
LOC: EDUNIT# → N.ED 13:16 → N.EDINP 13:16 → SUATTDRO 15:31 → N.EDINP 16:25 → N.5E 18:39 → N.TELEN 23:27
PROVIDERS: ADMIT Internal Medicine Clinical Cardiac Electrophysiology; ATTEND Internal Medicine